=== PATIENT | female | born 2000 | race Two or more races ===

== ENCOUNTER 2018-09-27 11:53 | Emergency (ER) | payer OTHER ==
[~2018-09-27] VITALS: Ht 162.6 cm; Wt 69.9 kg
[2018-09-27 12:08] VITALS: Ht 162.6 cm; Wt 69.9 kg
[2018-09-27 14:11] LABS: UA SPECIFIC GRAVITY >=1.030 (1.005-1.035); microscopic required? YES; urine erythrocyte 2+ (NEGATIVE)
[2018-09-27 14:22] VITALS: BP 107/56
== END 2018-09-27 14:22 | disposition home or self-care (01) ==
LOC: ED 11:53
PROVIDERS: Emergency Medicine
DX: R51 Headache (principal); N39.0 Urinary tract infection, site not specified; Z87.19 Personal history of other diseases of the digestive system; Z98.890 Other specified postprocedural states
CPT/HCPCS: J0780; J1885

== ENCOUNTER 2019-11-02 01:17 | Emergency (ER) | payer OTHER | END 2019-11-02 03:41 | disposition other institution (70) | LOC: ED 01:17 | DX: Z02.89 Encounter for other administrative examinations (principal) ==

== ENCOUNTER 2019-11-02 01:17 | Emergency (ER) | payer OTHER ==
[~2019-11-02] VITALS: Ht 162.6 cm; Wt 70.3 kg
[2019-11-02 01:31] VITALS: Ht 162.6 cm; Wt 70.3 kg
[2019-11-02 03:40] VITALS: BP 102/65
== END 2019-11-02 03:41 | disposition other institution (70) ==
LOC: ED 01:17
DX: S16.1XXA Strain of muscle, fascia and tendon at neck level, initial encounter (principal); S99.812A Other specified injuries of left ankle, initial encounter; V49.49XA Driver injured in collision with other motor vehicles in traffic accident, initial encounter; Y93.I9 Activity, other involving external motion; Y92.413 State road as the place of occurrence of the external cause; Y99.8 Other external cause status
CPT/HCPCS: Q0092